=== PATIENT | female | born 1950 | race Caucasian/White ===

== ENCOUNTER → 2016-10-07 | Day surgery (SDC) | payer OTHER ==
[~2016-10-07] MED LIST: AMBI10TA PO; ASPI1TAB69 PO; ASPI81TA11 PO; BUPIVACAINE HCL PF 0.5% 30 ML VIAL ONE; BUPIVACAINE HCL PF 0.75% 30 ML VIAL ONE; BUTA1CAP PO; CYMB60CA PO; ESTR1 PO; HYDR-3580 PO; IBUP400T20 PO; MEPERIDINE HCL 25 MG/ML VIAL IV ONE; MIDAZOLAM HCL 2 MG/2 ML VIAL IV ONE; NEXI40CA PO; PROPOFOL 200 MG/20 ML AMP IV ONE; RAMI2.5C PO; ROSU20 PO; TRIAMCINOLONE ACETONIDE 40 MG/ML VIAL I-ARTICULR ONE; methylPREDNISolone ACETATE 40 MG/ML VIAL I-ARTICULR ONE
--- NOTE | 2016-10-09 12:37 | M6 ---
cc: JUNAID MEDINA M.D. DATE: 10/07/2016. DATE OF : 1950 PROCEDURE PERFORMED: Fluoroscopically-guided injection bilateral lumbar facet joints (bilateral L3-4, L4-5 and L5-S1 facet joints). DESCRIPTION OF THE PROCEDURE IN DETAIL: History and physical was completed and signed. Consent was signed. Procedure site was marked. Medications were listed and reconciled. Pain score was recorded. Allergies were noted. Time out was taken. Fluoroscopy time was recorded where applicable. Sedation was administered or directed by Dr. Medina. The patient was given oxygen. The patient was monitored by a registered nurse. Total procedure time was greater than 15 minutes. IV was started, blood pressure cuff, pulse oximeter and EKG were applied. The patient was placed in the prone position on a Naseem table and sedated with small amounts of propofol titrated to effect. Vital signs were monitored and remained stable throughout the procedure. The lumbar area was prepped with alcohol and 10% Betadine solution and draped with sterile drapes. Fluoroscopy was used in a Luke Dog view to clearly visualize the bilateral lumbar facet joints at L3-4, L4-5 and L5-S1. Separate sterile 3-1/2-inch 25-gauge spinal needles were advanced into these joints under fluoroscopic guidance. There was negative aspiration for blood or any other type of fluid and at each location the patient was given 1 mL of Marcaine 0.75% which contained 10 cm of Kenalog. Following the procedure, the patient was taken to the recovery room with stable vital signs neurologically intact. W. MD KYREE Umanzor/MARIAM /10:19 AM /12:36 PM
== END | disposition home or self-care (01) ==
LOC: PHSDC 09:13
PROVIDERS: ATTEND Pain Medicine Interventional Pain Medicine
DX: M54.5 Low back pain (principal)
CPT/HCPCS: 64493; 64494; 64495; 99152; J1030; J2175; J2250; J3301

== ENCOUNTER → 2017-02-09 | Day surgery (SDC) | payer OTHER ==
[~2017-02-09] MED LIST changes: -ASPI1TAB69 PO; -HYDR-3580 PO
--- NOTE | 2017-02-11 16:08 | M6 ---
cc: JUNAID MEDINA M.D. DATE: 02/09/2017 DATE OF : 1950. PROCEDURE PERFORMED: Fluoroscopically-guided injection bilateral lumbar facet joints (bilateral L3-4, L4-5 and L5-S1 facet joints). DESCRIPTION OF THE PROCEDURE IN DETAIL: History and physical was completed and signed. Consent was signed. Procedure site was marked. Medications were listed and reconciled. Pain score was recorded. Allergies were noted. Time out was taken. Fluoroscopy time was recorded where applicable. Sedation was administered or directed by Dr. Medina. The patient was given oxygen. The patient was monitored by a registered nurse. Total procedure time was greater than 15 minutes. IV was started, blood pressure cuff, pulse oximeter and EKG were applied. The patient was placed in the prone position on a Naseem table and sedated with small amounts of propofol titrated to effect. Vital signs were monitored and remained stable throughout the procedure. The lumbar area was prepped with alcohol and 10% Betadine solution and draped with sterile drapes. Fluoroscopy was used in a Luke dog view to clearly visualize the bilateral lumbar facet joints at L3-4, L4-5 and L5-S1. Separate sterile 3-1/2-inch 25-gauge spinal needles were advanced into these joints under fluoroscopic guidance. There was negative aspiration for blood or any other type of fluid and at each location the patient was given 1 mL of Marcaine 0.75% which contained 10 mg of Kenalog. Following the procedure, the patient was taken to the recovery room with stable vital signs neurologically intact. She will be evaluated immediately and with followup to determine if she has a subjective decrease in the usual pain and a corresponding objective increase her functional capabilities. WMD KYREE Lo/MARIAM /9:56 AM /4:05 PM
== END | disposition home or self-care (01) ==
LOC: PHSDC 08:18
PROVIDERS: ATTEND Pain Medicine Interventional Pain Medicine
DX: M54.5 Low back pain (principal)
CPT/HCPCS: 64493; 64494; 64495; 99152; J1030; J2175; J2250; J3301